=== PATIENT | female | born 1975 | race Two or more races ===

== ENCOUNTER 2019-05-11 04:09 | Emergency (ER) | payer MEDICAID ==
[~2019-05-11] VITALS: Ht 180.3 cm; Wt 70.5 kg
[2019-05-11 04:17] VITALS: BP 119/75
[2019-05-11] MEDS ORDERED: CEPH-572 PO (06:16)
== END 2019-05-11 06:28 | disposition home or self-care (01) ==
LOC: ER 04:10
DX: S30.861A Insect bite (nonvenomous) of abdominal wall, initial encounter (principal); L03.311 Cellulitis of abdominal wall; F17.200 Nicotine dependence, unspecified, uncomplicated; Z79.899 Other long term (current) drug therapy; W57.XXXA Bitten or stung by nonvenomous insect and other nonvenomous arthropods, initial encounter; Y93.89 Activity, other specified; Y92.89 Other specified places as the place of occurrence of the external cause; Y99.8 Other external cause status
CPT/HCPCS: 99283

== ENCOUNTER 2022-02-24 11:51 | Emergency (ER) | payer MEDICAID ==
[~2022-02-24] VITALS: Ht 165.1 cm; Wt 65.0 kg
--- NOTE | 2022-02-24 12:12 | NUR ---
PT NOW ALSO REPORTS SHE PLACED FENTAL RECTALLY WELL
--- NOTE | 2022-02-24 12:12 | NUR ---
ALEXI PA AT BEDSIDE FOR PELVIC EXAM AND EXTRACTION OF PARAPHERNALIA
--- NOTE | 2022-02-24 12:27 | NUR ---
5 BAGS OF FENTANYL REMOVED FROM PTS VAGINA BY ALEXI LITTLE
[2022-02-24] MEDS ORDERED: CefTRIAXone 500MG IM Kit w/LIDOcaine IM ONE (12:30)
[2022-02-24] MEDS ORDERED: ondansetron/PF 4mg/2ml inj IV ONE (12:30)
[2022-02-24] MEDS ORDERED: PEG 3350/Na sulf,bicarb,Cl/KCl oral sol 4 liter bottle PO ONE (12:30)
[2022-02-24] MEDS ORDERED: azithromycin 250mg tablet PO ONE (12:30)
[2022-02-24 13:15] LABS: BASOPHILS # (AUTO) 0.1 X10'3 (0-0.2); BASOPHILS % (AUTO) 0.5 % (0-1); EOSINOPHILS % (AUTO) 0.1 % (0-6); HEMATOCRIT 36.2 % (35.0-45.0); HEMOGLOBIN 11.7 g/dl (12.0-16.0); LYMPHOCYTES # (AUTO) 0.5 X10'3 (1.1-4.8); LYMPHOCYTES % (AUTO) 3.6 % (21-51); MEAN CORPUSCULAR HEMOGLOBIN 29.5 PG (27.0-31.0); MEAN CORPUSCULAR HGB CONC 32.5 g/dL (33.0-36.5); MONOCYTES # (AUTO) 0.5 X10'3 (0-0.9); MONOCYTES % (AUTO) 3.4 % (2-12); NEUTROPHILS # (AUTO) 12.8 X10'3 (1.8-7.7); NEUTROPHILS % (AUTO) 92.4 % (42-75); PLATELET COUNT 322 X10'3 (140-440); RED BLOOD COUNT 3.98 X10'6 (4.20-5.60); RED CELL DISTRIBUTION WIDTH 12.6 % (11.5-14.5); WHITE BLOOD COUNT 13.9 X10'3 (4.5-11.0)
[2022-02-24 13:39] LABS: ALANINE AMINOTRANSFERASE 65 U/L (12-78); ALBUMIN 2.9 G/DL (3.4-5.0); ALBUMIN/GLOBULIN RATIO 0.8 (1.1-1.5); ALKALINE PHOSPHATASE 94 IU/L (46-116); ANION GAP 3 (8-16); ASPARTATE AMINO TRANSFERASE 58 U/L (10-37); BILIRUBIN,TOTAL 0.2 MG/DL (0.1-1.0); BLOOD UREA NITROGEN 15 MG/DL (7-18); BUN/CREATININE RATIO 18.8 (6.6-38.0); CALCIUM 7.9 MG/DL (8.5-10.1); CHLORIDE 103 MMOL/L (99-107); ETHANOL < 0.010 GM/DL (0.0-0.010); GLUCOSE 125 MG/DL (70-104); POTASSIUM 4.1 MMOL/L (3.5-5.1); SODIUM 138 MMOL/L (135-145); TOTAL PROTEIN 6.7 G/DL (6.4-8.2); eGFR 76 ML/MIN
[2022-02-24 14:09] LABS: URINE HCG NEGATIVE (NEG)
[2022-02-24 14:20] LABS: URINE AMPHETAMINE SCREEN POSITIVE (Neg); URINE BARBITUATE SCREEN NEGATIVE (Neg); URINE BENZODIAZEPINES SCREEN NEGATIVE (Neg); URINE CANNABINOID SCREEN NEGATIVE (Neg); URINE COCAINE SCREEN NEGATIVE (Neg); URINE METHADONE SCREEN NEGATIVE (Neg); URINE OPIATE SCREEN NEGATIVE (Neg); URINE PHENCYCLIDINE SCREEN NEGATIVE (Neg)
[2022-02-24] MEDS ORDERED: proCHLORperazine 10 MG/2 ml inj IV ONE (14:50)
[2022-02-24] MEDS ORDERED: NO HOME MEDS (17:45)
--- NOTE | 2022-02-24 19:00 | NUR ---
Patient to GI Lab with MD Renard.
[2022-02-24] MEDS ORDERED: fentaNYL/PF 50MCG/1 ML 2ML syringe ONE (19:04)
[2022-02-24] MEDS ORDERED: MIDAZolam 1 MG/ML 5ML VIAL ONE (19:05)
[2022-02-24 19:09] VITALS: BP 123/64
[2022-02-24 20:05] VITALS: BP 106/53
[2022-02-24 20:15] VITALS: BP 125/68
[2022-02-24 20:25] VITALS: BP 113/61
[2022-02-24 20:35] VITALS: BP 112/69
--- NOTE | 2022-02-24 20:52 | NUR ---
Patient returned from unit from CT s/p GI Lab.
[2022-02-24 22:59] VITALS: BP 118/52
== END 2022-02-24 23:09 ==
LOC: ER 11:51 → EEVIPCON 11:51 → ER 23:09
DX: T19.2XXA Foreign body in vulva and vagina, initial encounter (principal); T18.5XXA Foreign body in anus and rectum, initial encounter; T50.904A Poisoning by unspecified drugs, medicaments and biological substances, undetermined, initial encounter; T40.604A Poisoning by unspecified narcotics, undetermined, initial encounter; T40.414A Poisoning by fentanyl or fentanyl analogs, undetermined, initial encounter; T37.2X Poisoning by, adverse effect of and underdosing of antimalarials and drugs acting on other blood protozoa; R45.4 Irritability and anger; Y92.89 Other specified places as the place of occurrence of the external cause
CPT/HCPCS: 36415; 44390; 71045; 74176; 80053; 80305; 80320; 81025; 85025; 85610; 87491; 87591; 96372; 96374; 96375; 99152; 99153; 99285; C1769; J0696; J0780; J2250; J2405; J3010; J7040; Z7512; A4620